=== PATIENT | male | born 1970 | race Caucasian/White ===

== ENCOUNTER 2018-01-25 07:35 | Emergency (ER) | payer BC, OTHER ==
[2018-01-25] MEDS ORDERED: SODIUM CHLORIDE 1,000 ML IV STA (07:57)
--- NOTE | 2018-01-25 08:08 | PDOC ---
History of Present Illness - General Chief Complaint: Nausea/Vomiting Stated Complaint: VOMITING Time Seen by Provider: 01/25/18 07:46 History Source: Patient, EMS, Spouse (Information provided by EMS, and patient as: Eating croatian food last evening ( same with ) started having word processor nausea , vomiting whenever turning the head ) Exam Limitations: Clinical Condition - History of Present Illness Timing/Duration: 4-6 hours Severity: severe Modifying Factors: improves with: movement, rest Associated Symptoms: reports: loss of appetite Past History - Travel Traveled outside of the country in the last 30 days: No Close contact w/someone who was outside of country & ill: No - Past Medical History Allergies/Adverse Reactions: Allergies Allergy/AdvReac Type Severity Reaction Status Date / Time alcohol Allergy Hives Verified 01/25/18 09:02 Home Medications: Ambulatory Orders Meclizine HCl 25 mg PO TID #20 tablet 01/25/18 Ondansetron [Zofran *Odt*] 8 mg SL TID #14 od.tablet 01/25/18 Other medical history: Had similar episodes of positional nausea, vomiting Review of Systems - Review of Systems Able to Perform ROS?: Yes Is the patient limited [place] proficient: Yes Constitutional: Yes: Symptoms Reported, See HPI, Malaise HEENTM: No: Symptoms Reported, See HPI, Eye Pain, Blurred Vision, Tearing, Recent change in vision, Double Vision, Cataracts, Ear Pain, Ocular Prothesis, Ear Discharge, Nose Pain, Nose Congestion, Tinnitus, Nose Bleeding, Hearing Loss , Throat Pain, Throat Swelling, Mouth Pain, Dental Problems, Difficulty Swallowing, Mouth Swelling, Other Respiratory: No: Symptoms reported, See HPI, Cough, Orthopnea, Shortness of Breath, SOB with Exertion, SOB at Rest, Stridor, Wheezing, Productive cough, Hemoptysis, Other Cardiac (ROS): No: Symptoms Reported, See HPI, Chest Pain, Edema, Irregular Heart Rate, Lightheadedness, Palpitations, Syncope, Chest Tightness, Other ABD/GI: Yes: Nausea, Vomiting Integumentary: No: Symptoms Reported, See HPI, Bruising, Change in Color, Change in Hair/Nails, Dryness, Erythema, Flushing, Lesions, Lumps, Pallor, Pruritus, Rash, Sweating, Other Neurological: Yes: Dizziness All Other Systems: Reviewed and Negative *Physical Exam - Physical Exam General Appearance: Yes: Nourished, Appropriately Dressed, Severe Distress HEENT: positive: EOMI, LEONORA, Normal ENT Inspection Neck: positive: Trachea midline, Supple Respiratory/Chest: positive: Lungs Clear Cardiovascular: positive: Regular Rate, S1, S2 Gastrointestinal/Abdominal: positive: Normal Bowel Sounds, Soft Integumentary: positive: Normal Color, Dry, Warm Neurologic: positive: Fully Oriented, Alert, Normal Mood/Affect ( Positional vertigo withut nistagmus), Other (Positional vertigo, ) ED Treatment Course - LABORATORY CBC & Chemistry Diagram: 01/25/18 08:30 01/25/18 08:30 Medical Decision Making - Critical Care Time Total Critical Care Time (minutes): 30 Critical Care Statement: The care of this patient involved high complexity decision making to prevent further life threatening deterioration of the patient 's condition and/or to evaluate & treat vital organ system(s) failure or risk of failure. - Medical Decision Making Medical Control provided for EMS , Ordered iv fluds, Zofran, provided in the field. iImmediately assesed in the ER, EKG read by me RSR 68/min, no ectopy CT head reported as negative 01/25/18 12:32 Patient observed every hour by the hour for 5 hours , ivfluids medication Slowly improving. pRIOR TO DISCHARGE, PATIENT ABLE TO TOLERATE PO FLUIDS. FEELING MUCH MORE COMFORTABLE 01/25/18 14:36 *DC/Admit/Observation/Transfer Diagnosis at time of Disposition: Vertigo - Discharge Dispostion Disposition: HOME Condition at time of disposition: Improved Admit: No - Prescriptions Prescriptions: Meclizine HCl 25 mg PO TID #20 tablet Ondansetron [Zofran *Odt*] 8 mg SL TID #14 od.tablet - Referrals Referrals: Julián Brown MD [Staff Physician] - - Patient Instructions Printed Discharge Instructions: DI for Vertigo, DI for Benign Paroxysmal Positional Vertigo Additional Instructions: fOLLOW UP WITH NEUROLOGIST - Post Discharge Activity
[2018-01-25] MEDS ORDERED: ONDANSETRON 4 MG/2 ML VIAL IVPUSH ONE (08:09)
[2018-01-25] MEDS ORDERED: KETOROLAC TROMETHAMINE 30 MG/1 ML VIAL IVPUSH ONE (08:09)
[2018-01-25] MEDS ORDERED: KETOROLAC TROMETHAMINE 30 MG/1 ML VIAL ONE (08:10)
[2018-01-25] MEDS ORDERED: ONDANSETRON 4 MG/2 ML VIAL ONE (08:10)
[2018-01-25 08:37] VITALS: BP 131/85; PULSE 67; TEMP 97.5; BMI 25.7
[2018-01-25] MEDS ORDERED: MECLIZINE HCL 25 MG TABLET (FP) PO ONE ×2 (09:38→11:53)
[2018-01-25] MEDS ORDERED: MECLIZINE HCL 25 MG TABLET (FP) ONE ×2 (09:43→12:00)
[2018-01-25 10:06] LABS: BASO % 1.2 % (0-2.0); EOS % 1.6 % (0-4.5); HEMATOCRIT 47.1 % (35.4-49); HEMOGLOBIN 15.5 GM/dl (11.7-16.9); LYMPH % 46.4 % (8-40); MCH 28.6 pg (25.7-33.7); MEAN CELL VOLUME 86.6 fl (80-96); MEAN PLT VOLUME 9.6 fl (7.5-11.1); MONO % 4.3 % (3.8-10.2); NEUT % 46.5 % (42.8-82.8); PLATELET COUNT 281 K/MM3 (134-434); RBC 5.44 M/mm3 (4.00-5.60); RDW 13.7 % (11.9-15.9); WHITE BLOOD COUNT 10.6 K/mm3 (4.0-10.8)
[2018-01-25 10:21] LABS: ALBUMIN 4.3 g/dl (3.5-5.0); ALK PHOS 39 U/L (32-92); ANION GAP 8 (8-16); BILIRUBIN,TOTAL 0.8 mg/dl (0.2-1.0); BLOOD UREA NITROGEN 10 mg/dl (7-18); CALCIUM 9.1 mg/dl (8.4-10.2); CHLORIDE 108 mmol/L (98-107); CO2 18 mmol/L (22-28); GLUCOSE,RANDOM 200 mg/dl (74-106); POTASSIUM 3.8 mmol/L (3.5-5.1); SGOT/AST 23 U/L (10-42); SGPT/ALT 22 U/L (10-40); SODIUM 134 mmol/L (136-145); TOT PROT 6.8 g/dl (6.4-8.3)
[2018-01-25] MEDS ORDERED: METOCLOPRAMIDE HCL INJECTION 10 MG/2 ML VIAL IVPUSH ONE (11:54)
--- NOTE | 2018-01-26 09:57 | EKG ---
Test Reason : Blood Pressure : / mmHG Vent. Rate : 066 BPM Atrial Rate : 066 BPM P-R Int : 186 ms QRS Dur : 088 ms QT Int : 426 ms P-R-T Axes : 048 020 026 degrees QTc Int : 446 ms NORMAL SINUS RHYTHM NORMAL ECG NO PREVIOUS ECGS AVAILABLE Confirmed by MIGUE TRAN, GUILLERMO ([id number]) on 01/26/2018 9:57:39 AM Referred By: CHRISTY ESQUIVEL Confirmed By:GUILLERMO CAMARENA MD
== END 2018-01-25 14:43 | disposition home or self-care (01) ==
LOC: FER 07:35
PROC: 3E0333Z Introduction of Anti-inflammatory into Peripheral Vein, Percutaneous Approach (ICD-10-PCS; principal; 2018-01-25)
PROC: 3E033GC Introduction of Other Therapeutic Substance into Peripheral Vein, Percutaneous Approach (ICD-10-PCS; 2018-01-25)
PROC: 3E0337Z Introduction of Electrolytic and Water Balance Substance into Peripheral Vein, Percutaneous Approach (ICD-10-PCS; 2018-01-25)
DX: R42 Dizziness and giddiness (principal)
CPT/HCPCS: 36415; 70450-TC; 71045-TC-FY; 80053; 84484; 85025; 93005; 99284-25; J7030

== ENCOUNTER 2021-10-14 09:40 | Emergency (ER) | payer BC, OTHER ==
[2021-10-14] MEDS ORDERED: ACETAMINOPHEN 325 MG TABLET (FP) PO ONE (09:51)
[2021-10-14 10:13] VITALS: BP 123/81; PULSE 71; TEMP 100; BMI 25.7
[2021-10-14] MEDS ORDERED: ACETAMINOPHEN 325 MG TABLET (FP) ONE (10:24)
[2021-10-14 11:09] LABS: INR 1.39 (0.82-1.09); PROTHROMBIN TIME (PATIENT) 15.4 SEC (10.2-13.0)
[2021-10-14 11:11] LABS: ALBUMIN 3.8 g/dl (3.4-5.0); CALCIUM 9.3 mg/dl (8.5-10); CREATININE 1.1 mg/dl (0.55-1.3); TOT PROT 7.5 g/dl (6.4-8.2)
[2021-10-14 11:18] LABS: ACTIVATED PTT 27.8 SECONDS (25.2-36.5)
[2021-10-14 11:38] LABS: EPITHELIAL CELLS FEW /hpf
[2021-10-14] MEDS ORDERED: SODIUM CHLORIDE 0.9% 1000 ML INFUS.BAG IV ONE (11:38)
[2021-10-14] MEDS ORDERED: CEFTRIAXONE 1 GM in DEXTROSE 5%-WATER - 100 ML IVPB ONE (11:50)
[2021-10-14] MEDS ORDERED: cefTRIAXone SODIUM 1 GM VIAL ONE (11:51)
[2021-10-14] MEDS ORDERED: IBUPROFEN 400 MG TABLET (FP) PO ONE (14:52)
[2021-10-14 15:09] LABS: BASO % 0.8 % (0-2.0); EOS % 0.7 % (0-4.5); HEMOGLOBIN 15.7 GM/dL (11.7-16.9); MCH 28.3 pg (25.7-33.7); MCHC 33.3 g/dl (32.0-35.9); MEAN CELL VOLUME 85.1 fl (80-96); MEAN PLT VOLUME 9.6 fl (7.5-11.1); MONO % 9.3 % (3.8-10.2); NEUT % 74.2 % (42.8-82.8); PLATELET COUNT 327 10^3/uL (134-434); RBC 5.53 M/mm3 (4.00-5.60); RDW 14.6 % (11.9-15.9); WHITE BLOOD COUNT 9.6 K/mm3 (4.0-10.0)
[2021-10-14] MEDS ORDERED: IBUPROFEN 200 MG TABLET PO ONE (15:19)
[2021-10-14] MEDS ORDERED: IBUPROFEN 600 MG TABLET (FP) PO ONE (15:19)
[2021-10-15 11:08] LABS: MUMPS ANTIBODY IGG < 9.0 AU/mL (Immune >10.9)
[2021-10-16 23:09] LABS: MUMPS ANTIBODY IGM <0.80 AU (0.00-0.79)
== END 2021-10-14 16:57 | disposition home or self-care (01) ==
LOC: FER 09:40
DX: N45.2 Orchitis (principal)
CPT/HCPCS: 36415; 71045-TC-FY; 76870-TC; 80053; 81003; 81015; 84484; 85025; 85610; 85730; 86735; 87040; 87086; 87186; 87804; 87807; 99285-25; C9803; U0003; U0005